=== PATIENT | female | born 1985 | race Caucasian/White ===

== ENCOUNTER 2021-10-17 16:39 | Emergency (ER) | payer OTHER ==
[~2021-10-17] VITALS: Ht 154.9 cm; Wt 66.7 kg
[2021-10-17 16:40] VITALS: BP 142/81
[2021-10-17] MEDS ORDERED: [UNRECOGNIZED DRUG - CODE] (17:07)
[2021-10-17] MEDS ORDERED: BUPR150T5 (17:07)
[2021-10-17] MEDS ORDERED: AMPH1CAP4 (17:07)
[2021-10-17 19:42] LABS: HEMATOCRIT 36.9 % (36.0-47.0); HEMOGLOBIN 12.4 g/dl (12.0-15.5); LYMPH % 21.7 % (24.0-44.0); MEAN CORPUSCULAR HEMOGLOBIN 32.4 pg (27.0-33.0); MEAN CORPUSCULAR HGB CONC 33.6 g/dl (32.0-36.5); MEAN CORPUSCULAR VOLUME 96.3 fl (80.0-96.0); MONO # 0.8 10^3/uL (0.0-0.8); MONO % 8.1 % (2.0-8.0); NEUTROPHILS # 6.5 10^3/uL (1.5-8.5); NEUTROPHILS % 69.9 % (36.0-66.0); PLATELET COUNT, AUTOMATED 319 10^3/uL (150-450); RED BLOOD COUNT 3.83 10^6/uL (4.00-5.40); WHITE BLOOD COUNT 9.3 10^3/uL (4.0-10.0)
[2021-10-17] MEDS ORDERED: diphenhydrAMINE 50MG/ML VIAL (J1200) IV STA (19:57)
[2021-10-17] MEDS ORDERED: ACETAMINOPHEN 325 MG TAB PO ONE (20:00)
[2021-10-17] MEDS ORDERED: methylPREDNISolone 125MG 2ML VIAL IV ONE (20:00)
[2021-10-17 20:04] LABS: ERYTHROCYTE SEDIMENTATION RATE 6 mm/hr (0-20)
[2021-10-17] MEDS ORDERED: ISOVUE-370 76% 100ML VIAL As Ordered ONE (20:18)
== END 2021-10-17 21:53 | disposition home or self-care (01) ==
LOC: M ED 16:39
DX: L03.213 Periorbital cellulitis (principal); F90.9 Attention-deficit hyperactivity disorder, unspecified type; F41.8 Other specified anxiety disorders; F17.200 Nicotine dependence, unspecified, uncomplicated; Z88.8 Allergy status to other drugs, medicaments and biological substances
CPT/HCPCS: 70481; 80047; 84702; 85025; 85652; 86140; 96374; 96375; 99284; J1200; J2930; Q9967

== ENCOUNTER → 2021-12-21 | Outpatient (REF) | payer OTHER ==
[~2021-12-21] MED LIST: AMPH1CAP4; BUPR-71; [UNRECOGNIZED DRUG - CODE]
== END ==
LOC: M SFHCWAGY 17:13
PROVIDERS: ATTEND Advanced Practice Midwife
DX: Z12.4 Encounter for screening for malignant neoplasm of cervix (principal)
CPT/HCPCS: 87624; G0123; G0463

== ENCOUNTER → 2022-04-02 | Outpatient (CLI) | payer OTHER ==
[~2022-04-02] MED LIST changes: +CLAR10CA3 PO; +DOXY100T PO
== END ==
LOC: M LABSMTC 10:03
PROVIDERS: ATTEND Anesthesiology
DX: Z01.818 Encounter for other preprocedural examination (principal); Z11.52 Encounter for screening for COVID-19

== ENCOUNTER 2022-04-07 06:05 | Day surgery (SDC) | payer OTHER ==
[~2022-04-07] VITALS: Ht 154.9 cm; Wt 64.9 kg
[2022-04-07] MEDS ORDERED: PENI500T PO (06:33)
[2022-04-07 06:52] LABS: HEMATOCRIT 35.7 % (36.0-47.0); HEMOGLOBIN 12.2 g/dl (12.0-15.5); MEAN CORPUSCULAR HEMOGLOBIN 33.1 pg (27.0-33.0); MEAN CORPUSCULAR HGB CONC 34.2 g/dl (32.0-36.5); MEAN CORPUSCULAR VOLUME 96.7 fl (80.0-96.0); PLATELET COUNT, AUTOMATED 248 10^3/uL (150-450); RED BLOOD COUNT 3.69 10^6/uL (4.00-5.40); WHITE BLOOD COUNT 6.1 10^3/uL (4.0-10.0)
[2022-04-07] MEDS ORDERED: LR 1,000 ML IV SCH ×2 (06:55→09:10)
[2022-04-07] MEDS ORDERED: SCOPOLAMINE 1MG TRANSDERMAL PATCH TOP ONE (06:55)
[2022-04-07] MEDS ORDERED: MIDAZOLAM INJ 2MG/2ML VIAL (J2250 PER 1MG) As Ordered ONE (07:10)
[2022-04-07] MEDS ORDERED: propofoL 200 MG/20 ML VIAL As Ordered ONE (07:10)
[2022-04-07] MEDS ORDERED: fentaNYL 100 MCG/2 ML INJECTION As Ordered ONE (07:10)
[2022-04-07] MEDS ORDERED: ROCURONIUM BROMIDE 50 MG/5 ML VIAL As Ordered ONE ×2 (07:10→08:23)
[2022-04-07] MEDS ORDERED: LIDOCAINE 2% 100MG/5ML SDV (FOR ANES.) As Ordered ONE (07:11)
[2022-04-07] MEDS ORDERED: ACETAMINOPHEN 1000MG 100ML IV BTL (OFIRMEV) (J0131 PER 10MG) As Ordered ONE (07:11)
[2022-04-07] MEDS ORDERED: dexameTHASONE 4 MG/ML 1ML VIAL (J1100 PER 1MG) As Ordered ONE (07:11)
[2022-04-07] MEDS ORDERED: KETOROLAC 60MG 2ML VIAL As Ordered ONE (07:11)
[2022-04-07] MEDS ORDERED: ONDANSETRON 4MG 2ML VIAL As Ordered ONE (07:11)
[2022-04-07] MEDS ORDERED: BUPIVACAINE HCL 0.25% 10ML VIAL As Ordered ONE (07:12)
[2022-04-07] MEDS ORDERED: SUGAMMADEX SODIUM 500 MG/5 ML VIAL (BRIDION) As Ordered ONE (08:21)
[2022-04-07] MEDS ORDERED: fentaNYL 100 MCG/2 ML INJECTION IV PRN (09:10)
[2022-04-07] MEDS ORDERED: ONDANSETRON 4MG 2ML VIAL IV PRN (09:10)
[2022-04-07] MEDS ORDERED: oxyCODONE 5MG TAB PO PRN ×2 (09:10→11:05)
[2022-04-07] MEDS ORDERED: HYDROMORPHONE HCL 0.5 MG/ 0.5 ML SYRINGE (J1170 PER 1) IV PRN (09:10)
[2022-04-07] MEDS ORDERED: HYDROmorphone HCL 2MG/ML 1ML VIAL As Ordered ONE (09:16)
[2022-04-07 10:37] VITALS: BP 107/61
[2022-04-07] MEDS ORDERED: ACETAMINOPHEN 500 MG TAB PO PRN (11:05)
== END 2022-04-07 10:40 | disposition home or self-care (01) ==
LOC: M SDC 06:05
PROVIDERS: ATTEND Obstetrics & Gynecology
DX: Z30.2 Encounter for sterilization (principal); Z30.46 Encounter for surveillance of implantable subdermal contraceptive; F41.9 Anxiety disorder, unspecified; F90.9 Attention-deficit hyperactivity disorder, unspecified type; Z79.899 Other long term (current) drug therapy; Z88.8 Allergy status to other drugs, medicaments and biological substances
CPT/HCPCS: 11982; 36415; 58661; 81025; 85027; 86850; 86900; 86901; 88302; J0131; J1100; J1170; J1885; J2250; J2405; J3010

== ENCOUNTER → 2022-06-30 | Outpatient (CLI) | payer OTHER ==
[~2022-06-30] MED LIST changes: +PENI500T PO
== END ==
LOC: M RAD 10:20
PROVIDERS: ATTEND Internal Medicine
DX: M19.049 Primary osteoarthritis, unspecified hand (principal); M25.50 Pain in unspecified joint